=== PATIENT | male | born 1955 ===

== ENCOUNTER 2017-12-31 05:54 | Inpatient (IN) | payer OTHER ==
[2017-12-31] VITALS (12 sets, daily range): BP systolic 101–143; BP diastolic 64–86
[~2017-12-31] VITALS: Ht 167.6 cm; Wt 72.6 kg
[2017-12-31] MEDS ORDERED: EPINEPHrine 1mg/1ml Amp ONE (06:58)
[2017-12-31] MEDS ORDERED: JANUVIA100 MG ORAL (06:59)
[2017-12-31] MEDS ORDERED: GLIMEPIRIDE2 MG ORAL (06:59)
[2017-12-31] MEDS ORDERED: Thrombin 5000 units spray kit TOPIC ONE (06:59)
[2017-12-31] MEDS ORDERED: Gelfoam Absorbable 1gm powder pkt TOPIC ONE (07:00)
[2017-12-31] MEDS ORDERED: NS Irrig 1000ml ONE (07:00)
[2017-12-31] MEDS ORDERED: Sterile Water Irrig 1000ml IRRIG ONE (07:00)
[2017-12-31] MEDS ORDERED: Bupivacaine 0.5% Inj 30 ml vial INJ ONE (07:00)
[2017-12-31] MEDS ORDERED: LR 1000ml ONE (07:00)
[2017-12-31] MEDS ORDERED: Thrombin 5000 units TOPIC ONE (07:00)
[2017-12-31] MEDS ORDERED: Gelfoam Size TOPIC ONE (07:00)
[2017-12-31] MEDS ORDERED: Zemuron 50mg/5ml Inj IV ONE (07:00)
[2017-12-31] MEDS ORDERED: VITAMIN B12-FO1 EAC1 PO (07:01)
[2017-12-31] MEDS ORDERED: CALCIUM500 M3 PO (07:01)
[2017-12-31] MEDS ORDERED: Bacitracin 50000 Units Vial ONE (07:01)
[2017-12-31] MEDS ORDERED: Midazolam 2mg/2ml Inj ONE (07:07)
[2017-12-31] MEDS ORDERED: fentaNYL 100 mcg/2 mL IV ONE (07:07)
[2017-12-31] MEDS ORDERED: Lidocaine 1% MPF 10mg/ml 5ml ONE (07:08)
[2017-12-31] MEDS ORDERED: Propofol 200mg/20ml IV ONE (07:08)
[2017-12-31] MEDS ORDERED: Sodium Chloride 10ml vial INJ ONE (07:08)
--- NOTE | 2017-12-31 07:21 | Pre-Procedure Note/Attestation ---
Pre-Procedure Note/Attestation Complete Prior to Procedure Planned Procedure: not applicable Procedure Narrative: lumbar laminectomy L3 to S1 Indications for Procedure Pre-Operative Diagnosis: Lumbar spinal stenosis with aggravation Attestation I attest that I discussed the nature of the procedure; its benefits; risks and complications; and alternatives (and the risks and benefits of such alternatives ), prior to the procedure, with the patient (or the patient's legal sales representative advertising). I attest that, if there was a reasonable possibility of needing a blood transfusion, the patient (or the patient's legal sales representative advertising) was given the [facility] standardized written summary, pursuant to the [place] Blood Safety Act ([place] Health and Safety Code # 1645, as amended). I attest that I re-evaluated the patient just prior to the surgery and that there has been no change in the patient's H&P, except as documented below:no changes. NSAIDs stopped. Preop cleared. Paco Donahue MD Dec 31, 2017 07:21
--- NOTE | 2017-12-31 07:21 | Brief Operative Note ---
Immediate Post Operative Note Operative Note Pre-op Diagnosis: Lumbar spinal stenosis with aggravation Post-op Diagnosis: same as pre-op Findings: consistent w/pre-op dx studies Specimen: none Complications: none Condition: stable Fluids: per anesthesia Paco Donahue MD Dec 31, 2017 07:21
[2017-12-31] MEDS ORDERED: EPINEPHrine 1mg/1ml Amp IV ONE (07:30)
[2017-12-31] MEDS ORDERED: ePHEDrine 50mg/ml Inj ONE (07:58)
[2017-12-31] MEDS ORDERED: LR 1000ml 1,000 ML IVLG SCH (08:51)
[2017-12-31] MEDS ORDERED: Meperidine 50mg/ml Inj(FOR RIGORS ONLY) IVP PRN (09:00)
[2017-12-31] MEDS ORDERED: DiphenhydrAMINE 50mg/ml Inj IVP PRN (09:00)
[2017-12-31] MEDS ORDERED: LORazepam Inj 2mg/ml 1ml IV PRN (09:00)
[2017-12-31] MEDS ORDERED: Hydromorphone 0.5mg/0.5ml inj IVP PRN (09:00)
--- NOTE | 2017-12-31 09:04 | Anethesia Preoperative Eval ---
Anesthesia Pre-op PMH/ROS General Date of Evaluation: Dec 31, 2017 Time of Evaluation: 07:10 Anesthesiologist: Leann ASA Score: ASA 3 Mallampati Score Class I : Soft palate, uvula, fauces, pillars visible Class II: Soft palate, uvula, fauces visible Class III: Soft palate, base of uvula visible Class IV: Only hard plate visible Mallampati Classification: Class II Surgeon: Godfrey Diagnosis: Stenosis Surgical Procedure: Lumbar laminectomy Anesthesia History: none Family History: no anesthesia problems Allergies: Coded Allergies: No Known Allergies (Unverified , 12/31/17) Past Medical History Cardiovascular: Denies: HTN, CAD, AL, valve dz, arrhythmia, other Pulmonary: Denies: asthma, COPD, RITA, other Gastrointestinal/Genitourinary: Denies: GERD, CRI, ESRD, other Neurologic/Psychiatric: Denies: dementia, CVA, depression/anxiety, TIA, other Endocrine: Reports: DM; Denies: hypothyroidism, steroids, other HEENT: Reports: cataract (R) Hematology/Immune: Denies: anemia, DVT, bleeding disorder, other Musculoskeletal/Integumentary: Denies: OA, RA, DJD, DDD, edema, other PMH Narrative: DM PSxH Narrative: Denies Anesthesia Pre-op Phys. Exam Physician Exam Last Vital Signs Date Time Temp Pulse Resp B/P (MAP) Pulse Ox O2 Delivery O2 Flow Rate FiO2 12/31/17 07:03 Room Air 12/31/17 06:42 97.9 68 18 127/86 (100) 99 97.9 Constitutional: NAD Neurologic: CN 2-12 intact Cardiovascular: RRR, no M/R/G Respiratory: CTA Gastrointestinal: S/NT/ND Airway Exam Mallampati Score: Class II MO: full ROM: full Teeth: intact Anesthesia Pre-op A/P Labs WNL Accucheck 140 Studies Pre-op Studies: EKG - NSR Risk Assessment & Plan Assessment: 62 yo diabetic male here for lumbar laminectomy L3-S1. Plan: GETA, SedLine Status Change Before Surgery: No Pre-Antibiotics Drug: Ancef Given Within 1 Hr of Incision: Yes Time Given: 07:45 Willie Noriega MD Dec 31, 2017 09:04
--- NOTE | 2017-12-31 09:05 | Immediate Post-Op Evaluation ---
Immediate Post-Op Evalulation Immediate Post-Op Evalulation Procedure: Lumbar Laminectomy L3-S1 Date of Evaluation: Dec 31, 2017 Time of Evaluation: 11:10 IV Fluids: 1700 Estimated Blood Loss: 200 Urinary Output: 200 Blood Pressure Systolic: 101 Blood Pressure Diastolic: 64 Pulse Rate: 97 Respiratory Rate: 16 O2 Sat by Pulse Oximetry: 100 Temperature (Fahrenheit): 98.4 Pain Score (1-10): 3 Nausea: No Vomiting: No Complications No complication Patient Status: awake, patent, extubated, none Hydration Status: adequate Drug: Ancef Given Within 1 Hr of Incision: Yes Time Given: 07:45 Willie Noriega MD Dec 31, 2017 09:04
[2017-12-31] MEDS ORDERED: Norco 5mg/325mg tab ORAL PRN (10:45)
[2017-12-31] MEDS ORDERED: HYDROmorphone 1mg/ml Carpuject IVP PRN (10:45)
[2017-12-31] MEDS ORDERED: Insulin Human Regular 100units/ml 3ml SUBQ SCH (11:45)
--- NOTE | 2017-12-31 12:28 | Diagnostic Imaging Report ---
Indication: Lumbar pain, intraoperative imaging Technique: Intraoperative imaging Comparison: none Findings: Single lateral image demonstrates surgical tool projected posterior to what is presumably L4 Impression: Intraoperative imaging, as described
[2017-12-31] MEDS ORDERED: CEFAZOLIN SOD IV SCH (16:00)
[2017-12-31] MEDS ORDERED: 1/2 NS IV SCH (16:00)
[2017-12-31] MEDS: ceFAZolin sod 1 GM in NS 55 ML IVPB SCH (16:29)
[2017-12-31] MEDS: NovoLOG Insulin Flexpen SUBQ SCH ×2 (16:32→20:53)
[2017-12-31] MEDS: Docusate 100mg cap ORAL SCH (17:33)
[2017-12-31] MEDS: HYDROcodone/Acetamin 7.5/325 tab ORAL PRN (20:36)
[2018-01-01] VITALS: BP 110/73
[2018-01-01] MEDS: ceFAZolin sod 1 GM in NS 55 ML IVPB SCH ×2 (00:24→08:14)
[2018-01-01] MEDS: HYDROcodone/Acetamin 7.5/325 tab ORAL PRN ×4 (04:14→21:02)
[2018-01-01 04:21] VITALS: BP 134/83
[2018-01-01] MEDS: NovoLOG Insulin Flexpen SUBQ SCH ×4 (06:38→21:07)
[2018-01-01 07:54] VITALS: BP 111/66
[2018-01-01 07:57] LABS: ANION GAP 6 mmol/L (5-15); BLOOD UREA NITROGEN 11 mg/dL (7-18); CARBON DIOXIDE 28 MMOL/L (21-32); CHLORIDE 106 MMOL/L (98-107); CREATININE 0.8 MG/DL (0.55-1.30); POTASSIUM 3.6 MMOL/L (3.5-5.1); SODIUM 140 MMOL/L (136-145)
[2018-01-01] MEDS: Docusate 100mg cap ORAL SCH ×2 (08:14→16:55)
--- NOTE | 2018-01-01 11:11 | 48 Hour Post Anesthesia Eval ---
Post Anesthesia Evaluation Procedure: Lumbar Laminectomy L3-S1 Date of Evaluation: Jan 01, 2018 Airway: patent Nausea: No Vomiting: No Pain Intensity: 2 Hydration Status: adequate Cardiopulmonary Status: at baseline Mental Status/LOC: patient returned to baseline Post-Anesthesia Complications: 0 Follow-up care needed: N/A - further care as per primary team Reina Craig MD Jan 01, 2018 11:11
[2018-01-01 11:49] VITALS: BP 140/78
--- NOTE | 2018-01-01 13:59 | General Progress Note ---
Assessment/Plan Assessment/Plan Lumbar Laminectomy L3-S1 lumbar disc disease diabetes PLAN 1. incentive spirometry 2. DVT prophylaxis 3. PT evaluation and therapy 4. Hydration; and resume diabetic meds 5. Pain management 6. discharge once stable with outpatient follow up Subjective Allergies: Coded Allergies: No Known Allergies (Unverified , 12/31/17) Subjective care noted d/w spine d/w RN Objective Last 24 Hour Vital Signs Date Time Temp Pulse Resp B/P (MAP) Pulse Ox O2 Delivery O2 Flow Rate FiO2 01/01/18 11:49 97.2 94 18 140/78 (98) 99 97.2 01/01/18 07:54 98.1 94 20 111/66 (81) 99 98.1 01/01/18 07:52 Room Air 01/01/18 04:21 97.7 82 18 134/83 (100) 98 97.7 01/01/18 00:00 98.1 82 18 110/73 (85) 98 98.1 12/31/17 21:00 Room Air 12/31/17 20:00 98.4 98 18 115/69 (84) 98 98.4 12/31/17 17:29 98.5 12/31/17 16:30 98.5 12/31/17 16:00 98.5 89 18 129/78 (95) 100 98.5 Intake and Output 12/31/17 01/01/18 19:00 07:00 Intake Total 2375 ml 2097.5 ml Output Total 560 ml 130 ml Balance 1815 ml 1967.5 ml Intake Oral 600 ml IV Total 2375 ml 1497.5 ml Output Urine Total 200 ml Drainage Total 160 ml 130 ml Estimated Blood Loss 200 ml # Voids 3 Laboratory Tests 01/01/18 07:35: Sodium Level 140, Potassium Level 3.6, Chloride Level 106, Carbon Dioxide Level 28, Anion Gap 6, Blood Urea Nitrogen 11, Creatinine 0.8, Estimat Glomerular Filtration Rate > 60, Glucose Level 123H, Calcium Level 8.0L Height (Feet): 5 Height (Inches): 6.00 Weight (Pounds): 160 Objective WDWN NAD clear breath sounds bilaterally without rhonchi or wheeze [id number] without MRG NABS nontender no HSM no CCE nonfocal Migel Reina MD Jan 01, 2018 13:59
[2018-01-01 15:51] VITALS: BP 146/82
[2018-01-01] MEDS: metFORMIN 500mg tab ORAL SCH (17:08)
[2018-01-01 20:00] VITALS: BP 132/78
[2018-01-02] MEDS: HYDROcodone/Acetamin 7.5/325 tab ORAL PRN ×2 (01:15→06:23)
[2018-01-02 04:00] VITALS: BP 119/80
[2018-01-02] MEDS: NovoLOG Insulin Flexpen SUBQ SCH ×2 (06:30→12:14)
[2018-01-02 08:00] VITALS: BP 92/52
[2018-01-02] MEDS: Docusate 100mg cap ORAL SCH (08:55)
[2018-01-02] MEDS: metFORMIN 500mg tab ORAL SCH (08:55)
[2018-01-02] MEDS ORDERED: NORCO 5-325 TA1 EACH ORAL (10:16)
[2018-01-02 12:00] VITALS: BP 137/83
--- NOTE | 2018-01-02 12:41 | General Progress Note ---
Assessment/Plan Assessment/Plan Lumbar Laminectomy L3-S1 lumbar disc disease diabetes PLAN 1. incentive spirometry 2. DVT prophylaxis 3. PT evaluation and therapy 4. drain discontinued and removed 5. Pain management- RX given 6. discharge home Subjective Allergies: Coded Allergies: No Known Allergies (Unverified , 12/31/17) Subjective care noted d/w spine d/w RN Objective Last 24 Hour Vital Signs Date Time Temp Pulse Resp B/P (MAP) Pulse Ox O2 Delivery O2 Flow Rate FiO2 01/02/18 12:00 98.1 94 18 137/83 (101) 100 98.1 01/02/18 09:00 Room Air 01/02/18 08:00 98.2 93 18 92/52 (65) 97 98.2 01/02/18 04:00 98.4 88 18 119/80 (93) 100 98.4 01/01/18 21:00 Room Air 01/01/18 20:00 98.3 95 18 132/78 (96) 100 98.3 01/01/18 15:51 98.4 91 20 146/82 (103) 99 98.4 Intake and Output 01/01/18 01/02/18 19:00 07:00 Intake Total 1170 ml Output Total 80 ml 60 ml Balance 1090 ml -60 ml Intake Oral 920 ml IV Total 250 ml Drainage Total 80 ml 60 ml # Voids 6 2 Height (Feet): 5 Height (Inches): 6.00 Weight (Pounds): 160 Objective WDWN NAD clear breath sounds bilaterally without rhonchi or wheeze [id number] without MRG NABS nontender no HSM no CCE nonfocal Migel Reina MD Jan 02, 2018 12:41
--- NOTE | 2018-01-03 05:15 | Operative Note - Dictated ---
DATE OF OPERATION: 12/31/2017 NOTE: POOR AUDIO PREOPERATIVE DIAGNOSES: 1. Lumbar spinal stenosis, L3-S1. 2. Lumbar spinal stenosis with aggravation and symptomatic radiculopathy, status post injury, L3-S1. POSTOPERATIVE DIAGNOSES: 1. Lumbar spinal stenosis, L3-S1. 2. Lumbar spinal stenosis with aggravation and symptomatic radiculopathy, status post injury, L3-S1. PROCEDURES PERFORMED: 1. Lumbar laminectomy, L3, L4, L5, S1. 2. Use of microscope. SURGEON: Paco Donahue M.D. PERSONNEL TECHNICIAN: Artem . ANESTHESIOLOGIST: Dr. Reid. ANESTHESIA: General endotracheal anesthetic. ESTIMATED BLOOD LOSS: 250 mL. INTRAOPERATIVE FINDINGS: Significant lateral recess stenosis, especially L4-L5 with [id number] central canal stenosis L3-S1. [id number] lateral recess stenosis noted. INDICATIONS FOR PROCEDURE: The patient is a pleasant gentleman with significant aggravation of his lumbar spinal fusion segment L3-S1 with aggravation of spinal stenosis, symptomatic radiculopathy. The patient failed a reasonable amount of conservative treatment. The patient was indicated for surgery. No guarantees of outcome were given. Risks and benefits of surgery were discussed. The alternatives were discussed as well as preoperative medical clearance. The patient was preoperatively cleared and optimized for surgery. Informed consent was provided with [place] translation. DESCRIPTION OF PROCEDURE: On the day of surgery, the patient was positively identified and subsequently taken to the operating room, intubated by the anesthesiologist. Positioned prone on the Ben frame. Spinal lifting was utilized for positioning. The lumbodorsal spine was prepped and draped in usual sterile fashion. An approximately 3 inch incision was made in the lumbodorsal spine. This was performed after a surgical pause. The antibiotics were delivered. Marcaine and epinephrine were infiltrated. Once the Marcaine and epinephrine infiltration was provided, incision was made and subperiosteal dissection was carried down to the intralaminar space at L3-L4, L4-L5 and L5-S1. A localizing x-ray confirmed the level, and subsequently, I began laminectomy initially through the partial spinous processes of S1 and L3 and complete spinous processes at L4 and L5. The laminectomy started under microscope direct visualization initially with exposure of the medial facet joints and subsequently using the [employer] high-speed bur drill to thin the lamina. Care was utilized to prevent any dural injury or neurologic injury. Under direct visualization with the microscope, lamina was thinned using dissectors and curved curettes and microdissection. I was able to elevate and release the ligamentum flavum, removed it with Kerrison's without tearing the dura. This was repeated at L3-L4, L4-L5, and L5-S1 with partial laminectomy of L3 and partial laminectomy of S1, complete laminectomy and facetectomy of L3-L4, L4-L5, and L5-S1. The wound was copiously irrigated with significant stenosis noted of the lateral recess of L4-L5 severely stenotic. The nerve root was significantly decompressed was removed. The traversing L5 nerve root was able to dorsally translate without any sharp bony . This was L3-L4 and L5-S1. Again, the L4-L5 level was more significant stenotic level. The wound was copiously irrigated. No CSF leak was identified under direct visualization and under Valsalva maneuver. Pars was intact at all the levels and bipolar was utilized for hemostasis as well as FloSeal. was copiously utilized. The wound was copiously irrigated. Hemostasis was obtained with bipolar and FloSeal and . A subfascial drain was placed and the wound was reapproximated with heavy suture with #1 Vicryl, 2-0 Vicryl for the dermis, 3-0 Monocryl for the skin and Steri-Strips. Complications, none. The patient was taken off the operating table with the spine machine safely and without any injury noted. Disposition to recovery in stable condition. Paco Donahue M.D. DR: KAMRYN JOB#: [id number] CC:
--- NOTE | 2018-01-03 12:11 | Discharge Summary ---
Discharge Summary Discharge Summary _ DATE OF ADMISSION: 12/31/2017 DATE OF DISCHARGE: 01/02/2018 CONSULTANTS: Dr. Paco Donahue BRIEF HOSPITAL COURSE: Patient is a 62-year-old male, with significant aggravation of lumbar spinal fusion segment L3-S1 and aggravation of spinal stenosis with symptomatic radiculopathy. Patient failed reasonable amount of conservative treatment. Patient was indicated for surgery. He was admitted on 12/31/2017 and underwent laminectomy on L3, L4, L5 and S1. Intraoperative findings showed significant lateral recess stenosis, especially L4-L5 with mild to moderate central canal stenosis on L3-S1. Moderate to severe lateral recess stenosis was noted. He tolerated procedure well, and postoperatively was admitted for postop care. He was placed on SCDs for DVT prophylaxis. He was given incentive spirometry. He was continued on IV hydration and was given pain management. Olivarez catheter was discontinued. Diet was advanced. He was continued on home meds. He was seen by physical therapy. He was ambulating well with physical therapy with good pain control. Surgical dressing clean and dry. Hemovac was discontinued. He was then cleared for discharge home. FINAL DIAGNOSES: Lumbar disc disease Status post lumbar laminectomy on L3, L4, L5, and S1. Diabetes mellitus. DISPOSITION: Patient was discharged home. DISCHARGE MEDICATIONS: Refer to Discharge Medication List. DISCHARGE INSTRUCTIONS: Follow up with surgeon in 1-2 weeks. I have been assigned to dictate discharge summary on this account, and I was not involved in the patient's management. Sofia Renteria NP Jan 03, 2018 12:11
== END 2018-01-02 13:30 | disposition home or self-care (01) | DRG 517 ==
LOC: SDSOVERFLO 05:54 → 3E 12:20
PROC: 01NB0ZZ Release Lumbar Nerve, Open Approach (ICD-10-PCS; principal; 2017-12-31 07:30)
DX: M48.061 Spinal stenosis, lumbar region without neurogenic claudication (principal); M54.16 Radiculopathy, lumbar region; Z98.1 Arthrodesis status; V89.2XXS Person injured in unspecified motor-vehicle accident, traffic, sequela; E11.9 Type 2 diabetes mellitus without complications; F17.200 Nicotine dependence, unspecified, uncomplicated
CPT/HCPCS: 36415; 72020; 76000; 80048; 82962; 86850; 86900; 86901; 87081; 94003; 94150; J1815; J2250; J2405